=== PATIENT | female | born 1985 | race American Indian/Alaskan Native ===

== ENCOUNTER 2018-09-24 15:31 | Emergency (ER) | payer OTHER ==
[2018-09-24 15:41] VITALS: BMI 32.9
[2018-09-24 15:44] VITALS: RESP 18; TEMP 98.3
[2018-09-24] MEDS ORDERED: Sodium Chloride 0.9% 1,000 ML IV STA (15:57)
[2018-09-24 16:29] LABS: PH,URINE 6.5 (4.7-8.0); URINE BILIRUBIN NEGATIVE (NEGATIVE); URINE BLOOD NEGATIVE (NEGATIVE); URINE GLUCOSE (UA) NEGATIVE (NEGATIVE); URINE LEUKOCYTE ESTERASE NEGATIVE Leu/uL (NEGATIVE); URINE PROTEIN NEGATIVE mg/dL (<30 mg/dL); URINE UROBILINOGEN 0.2 E.U./dL (<1 E.U./dL)
[2018-09-24 16:31] LABS: BASO # 0.02 K/mm3 (0.0-2.0); BASO % 0.5 % (0.0-3.0); EOS % 0.7 % (1.5-5.0); HEMOGLOBIN 11.9 g/dL (12.0-16.0); LYMPH # 2.1 (1.2-3.4); LYMPH % 50.4 % (22.0-35.0); MEAN CELL VOLUME 83.5 fl (80.0-105.0); MEAN CORPUSCULAR HEMOGLOBIN 25.8 pg (25.0-35.0); MEAN CORPUSCULAR HGB CONC 30.9 g/dl (31.0-37.0); MEAN PLATELET VOLUME 11.7 fl (7.0-11.0); MONO # 0.3 (0.1-0.6); MONO % 6.4 % (1.0-6.0); RBC 4.61 10^6/uL (3.5-6.1); RED CELL DISTRIBUTION WIDTH 14.8 % (11.5-14.5); WHITE BLOOD COUNT 4.1 10^3/uL (4.5-11.0)
[2018-09-24 16:37] LABS: URINE APPEARANCE CLEAR (CLEAR); URINE COLOR YELLOW (YELLOW)
[2018-09-24 16:41] LABS: INR 1.15; PARTIAL THROMBOPLASTIN TIME 35.6 Seconds (26.9-38.3); PROTHROMBIN TIME 12.8 SECONDS (9.4-12.5)
[2018-09-24 16:44] LABS: HCG,QUALITATIVE URINE NEGATIVE (NEGATIVE)
[2018-09-24 17:02] LABS: ALBUMIN 3.7 g/dL (3.0-4.8); ALT/SGPT 15 U/L (7-56); AST/SGOT 29 U/L (14-36); BLOOD UREA NITROGEN 12 mg/dL (7-21); CALCIUM 9.1 mg/dL (8.4-10.5); GFR NON-AFRICAN AMERICAN > 60; LIPASE 125 U/L (23-300)
[2018-09-24] MEDS ORDERED: Potassium Chloride 20 mEq ER Tab PO STA (17:19)
[2018-09-24 18:36] VITALS: BP 122/65; PULSE 62; O2SAT 100
--- NOTE | 2018-09-25 00:15 | ED PDOC ---
Arrival/HPI - General Chief Complaint: GI Problem Time Seen by Provider: 09/24/18 15:33 Historian: Patient - History of Present Illness Narrative History of Present Illness (Text): 33 y/o female with no significant PMH presents to the ED c/o nausea, vomiting, and diarrhea x 2 days. Pt states symptoms have been improving over the last few days. However, she wanted to come to ED to be checked out at the advice of her mother. Last episode of vomiting and diarrhea early this morning. Associated generalized abdominal cramping relieved by BM. Both diarrhea and vomit is nonbloody. No recent changes in diet or travel but has positive close sick contact with gastroenteritis. Able to tolerate small amounts of food PO. Denies fever, chills, back pain, urinary symptoms, chest pain, SOB, cough, headache, vision changes, neck pain or stiffness, or any other associated symptoms. Past Medical History - Infectious Disease Hx of Infectious Diseases: None - Psychiatric Hx Substance Use: No - Anesthesia Hx Anesthesia: No Family/Social History Smoking Status: Never Smoked Hx Alcohol Use: Yes Frequency of alcohol use: Socially Hx Substance Use: No Allergies/Home Meds Allergies/Adverse Reactions: Allergies No Known Allergies Allergy (Verified 09/24/18 15:41) Review of Systems - Review of Systems Constitutional: Normal. absent: Fevers Eyes: Normal. absent: Vision Changes ENT: Normal. absent: Sore Throat, Sinus Congestion Respiratory: Normal. absent: SOB, Cough Cardiovascular: Normal. absent: Chest Pain, Palpitations Gastrointestinal: Abdominal Pain, Stool Changes, Diarrhea, Nausea, Vomiting, Appetite Changes. absent: Hematochezia, Hematemesis Genitourinary Female: Normal. absent: Dysuria, Frequency, Vaginal Bleeding, Vaginal Discharge Musculoskeletal: Normal. absent: Arthralgias, Back Pain, Neck Pain Skin: Normal. absent: Rash Neurological: Normal. absent: Headache, Dizziness, Focal Weakness, Speech Changes, Disequilibrium Endocrine: Normal Hemo/Lymphatic: Normal Psychiatric: Normal Physical Exam Vital Signs Temp Pulse Resp BP Pulse Ox 09/24/18 18:35 62 18 122/65 100 09/24/18 15:44 98.3 F 60 18 127/78 99 Temperature: Afebrile Blood Pressure: Normal Pulse: Regular Respiratory Rate: Normal Appearance: Positive for: Well-Appearing, Non-Toxic, Comfortable Pain Distress: None Mental Status: Positive for: Alert and Oriented X 3 - Systems Exam Head: Present: Atraumatic, Normocephalic Pupils: Present: PERRL Extroacular Muscles: Present: EOMI Conjunctiva: Present: Normal Mouth: Present: Moist Mucous Membranes Neck: Present: Normal Range of Motion Respiratory/Chest: Present: Clear to Auscultation, Good Air Exchange. No: Respiratory Distress, Accessory Muscle Use Cardiovascular: Present: Regular Rate and Rhythm, Normal S1, S2, Peripheal Pulses Present Abdomen: Present: Normal Bowel Sounds. No: Tenderness, Distention, Peritoneal Signs, Rebound, Guarding Back: Present: Normal Inspection. No: CVA Tenderness, Paraspinal Tenderness Upper Extremity: Present: Normal Inspection, Normal ROM, NORMAL PULSES, Neurovascularly Intact, Capillary Refill < 2s. No: Cyanosis, Edema, Temperature Abnormalties Lower Extremity: Present: Normal Inspection, NORMAL PULSES, Normal ROM, Neurovascularly Intact, Capillary Refill < 2 s. No: Edema, Temperature Abnormalties Neurological: Present: GCS=15, CN II-XII Intact, Speech Normal, Motor Func Grossly Intact, Normal Sensory Function, Gait Normal Skin: Present: Warm, Dry, Normal Color. No: Rashes Psychiatric: Present: Alert, Oriented x 3, Normal Insight, Normal Concentration, Normal Affect, Normal Mood Medical Decision Making ED Course and Treatment: Initial Plan: * CBC, CMP * Coags * Lipase * UA * IVF * Pepcid * Zofran Abdomen is soft and nontender Bloodwork reviewed, mild hypokalemia replaced with KDur, otherwise unremarkable. Patient reports complete resolution of symptoms with medication. Requesting discharge home. Advised PMD followup. Diagnostic testing results and plan of care discussed with patient. Strict instructions given regarding prescription use, importance of followup, and signs/symptoms to return to ER including fever, worsening abdominal pain, lethargy, or any other new/worsening symptoms. Pt verbalized understanding of discussion. Patient is A&Ox3, ambulating with steady gait, with vital signs stable for discharge. - Lab Interpretations Lab Results: PT 12.8 SECONDS (9.4-12.5) H 09/24/18 16:20 INR 1.15 09/24/18 16:20 APTT 35.6 Seconds (26.9-38.3) 09/24/18 16:20 Total Bilirubin 0.3 mg/dL (0.2-1.3) 09/24/18 16:20 AST 29 U/L (14-36) 09/24/18 16:20 ALT 15 U/L (7-56) 09/24/18 16:20 Alkaline Phosphatase 52 U/L (38-126) 09/24/18 16:20 Total Protein 7.2 g/dL (5.8-8.3) 09/24/18 16:20 Albumin 3.7 g/dL (3.0-4.8) 09/24/18 16:20 Globulin 3.5 gm/dL 09/24/18 16:20 Albumin/Globulin Ratio 1.0 (1.1-1.8) L 09/24/18 16:20 Lipase 125 U/L (23-300) 09/24/18 16:20 Urine Color Yellow (YELLOW) 09/24/18 16:10 Urine Appearance Clear (CLEAR) 09/24/18 16:10 Urine pH 6.5 (4.7-8.0) 09/24/18 16:10 Ur Specific [place] 1.025 (1.005-1.035) 09/24/18 16:10 Urine Protein Negative mg/dL (<30 mg/dL) 09/24/18 16:10 Urine Glucose (UA) Negative mg/dL (NEGATIVE) 09/24/18 16:10 Urine Ketones Negative mg/dL (NEGATIVE) 09/24/18 16:10 Urine Blood Negative (NEGATIVE) 09/24/18 16:10 Urine Nitrate Negative (NEGATIVE) 09/24/18 16:10 Urine Bilirubin Negative (NEGATIVE) 09/24/18 16:10 Urine Urobilinogen 0.2 E.U./dL (<1 E.U./dL) 09/24/18 16:10 Ur Leukocyte Esterase Negative [place]/uL (NEGATIVE) 09/24/18 16:10 Urine HCG, Qual Negative (NEGATIVE) 09/24/18 16:10 Urine HCG, Qual Negative (NEGATIVE) 09/24/18 16:10 09/24/18 16:20 09/24/18 16:20 Lab Results 09/24/18 16:20: Sodium 139, Potassium 3.4 L, Chloride 105, Carbon Dioxide 27, Anion Gap 11, BUN 12, Creatinine 0.8, Est GFR ( Amer) > 60, Est GFR (Non- Af Amer) > 60, Random Glucose 86, Calcium 9.1, Magnesium 1.8, Total Bilirubin 0.3, AST 29, ALT 15, Alkaline Phosphatase 52, Total Protein 7.2, Albumin 3.7, Globulin 3.5, Albumin/Globulin Ratio 1.0 L, Lipase 125 09/24/18 16:20: PT 12.8 H, INR 1.15, APTT 35.6 09/24/18 16:20: WBC 4.1 L, RBC 4.61, Hgb 11.9 L, Hct 38.5, MCV 83.5, MCH 25.8, MCHC 30.9 L, RDW 14.8 H, Plt Count 195, MPV 11.7 H, Neut % (Auto) 42.0 L, Lymph % (Auto) 50.4 H, [place] % (Auto) 6.4 H, Eos % (Auto) 0.7 L, Baso % (Auto) 0.5, Lymph # (Auto) 2.1, [place] # (Auto) 0.3, Eos # (Auto) 0.0, Baso # (Auto) 0.02, Absolute Neuts (auto) 1.71 09/24/18 16:10: Urine Color Yellow, Urine Appearance Clear, Urine pH 6.5, Ur Specific [place] 1.025, Urine Protein Negative, Urine Glucose (UA) Negative, Urine Ketones Negative, Urine Blood Negative, Urine Nitrate Negative, Urine Bi lirubin Negative, Urine Urobilinogen 0.2, Ur Leukocyte Esterase Negative, Urine HCG, Qual Negative I have reviewed the lab results: Yes - Medication Orders Current Medication Orders: Discontinued Medications Famotidine (Pepcid) 20 mg IVP STAT STA Stop: 09/24/18 15:58 Last Admin: 09/24/18 16:13 Dose: 20 mg IVP Administration Document 09/24/18 16:13 EQ (Rec: 09/24/18 16:13 EQ [id number]) Charges for Administration # of IVP Administrations 1 Sodium Chloride (Sodium Chloride 0.9%) 1,000 mls @ 1,000 mls/hr IV .Q1H STA Stop: 09/24/18 16:56 Last Admin: 09/24/18 16:12 Dose: 1,000 mls/hr eMAR Start Stop Document 03/27/19 16:12 EQ (Rec: 09/24/18 16:12 EQ [id number]) Intravenous Solution Start Date 09/24/18 Start Time 16:12 Ondansetron HCl (Zofran Inj) 4 mg IVP STAT STA Stop: 09/24/18 15:58 Last Admin: 09/24/18 16:12 Dose: 4 mg IVP Administration Document 09/24/18 16:12 EQ (Rec: 09/24/18 16:12 EQ [id number]) Charges for Administration # of IVP Administrations 1 Potassium Chloride (K-Dur 20 Meq Er Tab) 20 meq PO STAT STA Stop: 09/24/18 17:20 Last Admin: 09/24/18 17:49 Dose: 20 meq Disposition/Present on Arrival - Present on Arrival Any Indicators Present on Arrival: No History of DVT/PE: No History of Uncontrolled Diabetes: No Urinary Catheter: No History of Decub. Ulcer: No History Surgical Site Infection Following: None - Disposition Have Diagnosis and Disposition been Completed?: Yes Diagnosis: Gastroenteritis Disposition: HOME/ ROUTINE Disposition Time: 18:20 Condition: IMPROVED Discharge Instructions (ExitCare): Gastroenteritis (ED) Additional Instructions: Increase fluids Rest, no strenuous activity Pepcid every 12 hours as needed Zofran every 8 hours as needed Followup with primary doctor within 2 days Return to ER with any new/worsening symptoms Prescriptions: Famotidine [Pepcid] 20 mg PO Q12 #14 tab Ondansetron HCl [Zofran] 4 mg PO Q8 PRN #6 tablet PRN Reason: Nausea/Vomiting Referrals: [facility] [place] [facility] [place] - Follow up with primary Forms: [employer] (Turkmen), WORK NOTE
== END 2018-09-24 18:37 | disposition home or self-care (01) ==
LOC: ED 15:31
DX: K52.9 Noninfective gastroenteritis and colitis, unspecified (principal)
CPT/HCPCS: 80053; 81003; 81025; 83690; 83735; 84703; 85025; 85610; 85730; 87086; 96374; 96375; 99284; J2405; J7030